=== PATIENT | female | born 1980 | race Asian ===

== ENCOUNTER 2017-11-29 13:29 | Inpatient (IN) | payer BC, MEDICAID ==
[~2017-11-29] VITALS: Ht 157.5 cm; Wt 61.0 kg
[2017-11-29 13:41] VITALS: Ht 157.5 cm; Wt 61.0 kg
[2017-11-29 14:32] LABS: BASOPHIL % 0.3 % (0-2); PLATELET COUNT 306 x10^3mcL (130-400)
[2017-11-29 14:55] LABS: ALBUMIN 3.6 g/dL (3.4-5.0); ALKALINE PHOSPHATASE 57 U/L (46-116); ALT/SGPT 32 U/L (14-59); AST/SGOT 19 U/L (15-37); BILIRUBIN TOTAL 0.2 mg/dL (0.20-1.00); CALCIUM 8.8 mg/dL (8.5-10.1); CARBON DIOXIDE 31.2 mmol/L (21-32); CHLORIDE SERUM 103 mmol/L (98-107); CREATININE SERUM 0.8 mg/dL (0.6-1.0); GFR1 > 60 mL/min; SODIUM SERUM 143 mmol/L (136-145); TOTAL PROTEIN, SERUM 7.1 g/dL (6.4-8.2)
[2017-11-29 14:59] LABS: POTASSIUM SERUM 2.8 mmol/L (3.5-5.1)
[2017-11-29 15:00] LABS: GLUCOSE SERUM 39 mg/dL (74-106)
[2017-11-29 16:24] LABS: MAGNESIUM 2.3 mg/dL (1.8-2.4); PHOSPHOROUS 2.7 mg/dL (2.5-4.9)
[2017-11-29 16:25] LABS: CHOLESTEROL/HDL RATIO 1.8
[2017-11-29 16:30] LABS: T3 TOTAL 0.79 ng/mL
[2017-11-29 16:40] VITALS: BP 125/85
[2017-11-29 16:50] LABS: FREE T4 0.59 ng/dL (0.76-1.46)
[2017-11-29 16:51] LABS: FREE THYROXINE INDEX 1.4 ug/dL (1.4-4.5); T4(THYROXINE) 4.1 ug/dL (4.7-13.3)
[2017-11-29] MEDS ORDERED: KEPPRA1000 M1 PO ×3 (18:20→18:22)
[2017-11-29] MEDS ORDERED: ZONEGRAN100 MG PO (18:22)
[2017-11-29] MEDS ORDERED: TRILEPTAL300 MG PO ×3 (18:25→18:26)
[2017-11-29] MEDS ORDERED: HYDROCHLOROTH12.5 M2 PO (18:27)
[2017-11-29] MEDS ORDERED: ZONISAMIDE50 MG PO (18:27)
[2017-11-29 19:49] VITALS: BP 141/78
[2017-11-29 21:35] VITALS: BP 142/84
[2017-11-30 06:18] VITALS: BP 143/91
[2017-11-30 06:37] LABS: BASOPHIL % 0.7 % (0-2); PLATELET COUNT 263 x10^3mcL (130-400); RED CELL DISTRIBUTION WIDTH 11.6 % (11.5-14.5)
[2017-11-30 06:48] LABS: CALCIUM 7.5 mg/dL (8.5-10.1); CARBON DIOXIDE 24.1 mmol/L (21-32); CHLORIDE SERUM 106 mmol/L (98-107); CREATININE SERUM 0.6 mg/dL (0.6-1.0); GFR1 > 60 mL/min; GLUCOSE SERUM 86 mg/dL (74-106); MAGNESIUM 2.1 mg/dL (1.8-2.4); POTASSIUM SERUM 3.4 mmol/L (3.5-5.1); SODIUM SERUM 140 mmol/L (136-145)
[2017-11-30 09:10] LABS: UA SPECIFIC GRAVITY 1.015 (1.005-1.035); microscopic required? YES; urine erythrocyte NEGATIVE (NEGATIVE)
[2017-11-30 09:25] LABS: AMPHETAMINE QUAL UR NONE DETECTED (NEG <=1000)
[2017-11-30 10:00] VITALS: BP 144/95
[2017-11-30 13:30] VITALS: BP 149/102
[2017-11-30 21:42] VITALS: BP 135/87
[2017-11-30 22:27] VITALS: BP 135/57
== END 2017-11-30 23:27 | disposition short-term general hospital (02) | DRG 100 ==
LOC: ED 13:29 → DU 15:28
PROVIDERS: Emergency Medicine; Family Medicine Sports Medicine
DX: G40.509 Epileptic seizures related to external causes, not intractable, without status epilepticus (principal); G93.41 Metabolic encephalopathy; E87.6 Hypokalemia; E16.2 Hypoglycemia, unspecified; I10 Essential (primary) hypertension; T50.905A Adverse effect of unspecified drugs, medicaments and biological substances, initial encounter; Y92.89 Other specified places as the place of occurrence of the external cause
CPT/HCPCS: 82962; 83880; 84439; J2060; J3490; J7030

== ENCOUNTER 2019-06-22 13:15 | Emergency (ER) | payer BC, MEDICAID ==
[~2019-06-22] VITALS: Ht 152.4 cm; Wt 63.5 kg
[~2019-06-22 13:15] MED LIST: HYDROCHLOROTH12.5 M2 PO; KEPPRA1000 M1 PO; TRILEPTAL300 MG PO; ZONEGRAN100 MG PO; ZONISAMIDE50 MG PO
[2019-06-22 13:27] VITALS: Ht 152.4 cm; Wt 63.5 kg
[2019-06-22 13:57] LABS: BASOPHIL % 0.6 % (0-2); PLATELET COUNT 272 x10^3mcL (130-400)
[2019-06-22 14:01] LABS: CALCIUM 8.4 mg/dL (8.5-10.1); CARBON DIOXIDE 29.8 mmol/L (21-32); CREATININE SERUM 0.7 mg/dL (0.6-1.0); GFR1 > 60 mL/min; GLUCOSE SERUM 82 mg/dL (74-106); SODIUM SERUM 141 mmol/L (136-145)
[2019-06-22 14:05] LABS: ALBUMIN 3.4 g/dL (3.4-5.0); ALKALINE PHOSPHATASE 77 U/L (46-116); ALT/SGPT 26 U/L (14-59); BILIRUBIN TOTAL 0.3 mg/dL (0.20-1.00); TOTAL PROTEIN, SERUM 6.9 g/dL (6.4-8.2)
[2019-06-22 14:27] LABS: AMPHETAMINE QUAL UR NONE DETECTED (See below)
[2019-06-22 14:29] LABS: AST/SGOT 33 U/L (15-37); CHLORIDE SERUM 107 mmol/L (98-107)
[2019-06-22 14:35] LABS: POTASSIUM SERUM 4.3 mmol/L (3.5-5.1)
[2019-06-22 17:58] VITALS: BP 134/88
== END 2019-06-22 17:58 | disposition home or self-care (01) ==
LOC: ED 13:15
PROVIDERS: Emergency Medicine
DX: R56.9 Unspecified convulsions (principal)
CPT/HCPCS: J1200